=== PATIENT | female | born 1965 | race Caucasian/White ===

== ENCOUNTER 2021-05-12 06:00 | Day surgery (SDC) | payer OTHER ==
[2021-03-31 16:40] VITALS: BMI 28.3
[2021-05-12] MEDS ORDERED: LIDOCAINE HCL 2% (20ML MULTI-DOSE VIAL) ONE (07:15)
[2021-05-12] MEDS ORDERED: KETAMINE HCL 200 MG/20 ML VIAL ONE (07:19)
[2021-05-12] MEDS ORDERED: MIDAZOLAM HCL 2 MG/2 ML SINGLE DOSE VIAL ONE (07:19)
[2021-05-12] MEDS ORDERED: PROPOFOL 20 ML ONE ×2 (07:19)
[2021-05-12] MEDS ORDERED: LIDOCAINE HCL 2% (50ML VIAL) NR ONE (08:00)
[2021-05-12 08:50] VITALS: BP 137/81; PULSE 59; TEMP 98.4
== END 2021-05-12 09:06 | disposition home or self-care (01) ==
LOC: FASU 06:00
PROVIDERS: ATTEND Orthopaedic Surgery Hand Surgery
PROC: 0LN70ZZ Release Right Hand Tendon, Open Approach (ICD-10-PCS; principal; 2021-05-12 07:30)
DX: M65.341 Trigger finger, right ring finger (principal)